=== PATIENT | male | born 1990 ===

== ENCOUNTER 2018-09-10 13:25 | Emergency (ER) | payer OTHER ==
[2018-09-10] MEDS ORDERED: Fluorescein Sodium TOPICAL* 1 MG TEST STRIP OPHTHALMIC ONE (14:01)
[2018-09-10] MEDS ORDERED: Tetracaine 0.5% OPTH.SOL 4 ML* 1 DROP BTL ONE (14:01)
[2018-09-10] MEDS ORDERED: Ibuprofen TAB* 600 MG PO ONE (15:35)
--- NOTE | 2018-09-10 16:18 | ED ---
Throat Pain/Nasal Congestion - HPI Summary HPI Summary: Patient here with right-sided eye pain. Reports he woke with pain this morning. He denies photophobia, foreign body sensation, itching and no known trauma. He is sitting in chair keeping his eye closed and reports he gets "zings" of pain occasionally in front of eye. Feels better when he pulls his lid off of his cornea. No discharge, blurred vision, pain with palpation, headache, pain behind the eye, floaters. Admits he had URI symptoms about 3 days ago which have since cleared. No fevers, chills, neck pain or stiffness, rash. He does not wear contact lenses and no new cosmetics, etc. - History of Current Complaint Chief Complaint: EDEyeProblem Time Seen by Provider: 09/10/18 14:01 Hx Obtained From: Patient - Allergies/Home Medications Allergies/Adverse Reactions: Allergies Allergy/AdvReac Type Severity Reaction Status Date / Time No Known Allergies Allergy Verified 09/10/18 13:33 PMH/Surg Hx/FS Hx/Imm Hx Previously Healthy: Yes Endocrine/Hematology History: Denies: Autoimmune Disease Cardiovascular History: Denies: Hx Aneurysm - Immunization History Immunizations Up to Date: Yes Infectious Disease History: No Infectious Disease History: Denies: Traveled Outside the [place] in Last 30 Days - Social History Occupation: Student Alcohol Use: Occasionally Substance Use Type: Reports: Marijuana Hx Tobacco Use: Yes Smoking Status (MU): Current Every Day Smoker Review of Systems Constitutional: Negative Negative: Fever, Chills, Fatigue Positive: Drainage - watery, Erythema. Negative: Photophobia, Blurred Vision, Diplopia ENT: Negative Cardiovascular: Negative Respiratory: Negative Gastrointestinal: Negative Negative: Vomiting, Nausea Positive: no symptoms reported Musculoskeletal: Negative Skin: Negative Neurological: Negative Psychological: Other - concerned All Other Systems Reviewed And Are Negative: Yes Physical Exam Triage Information Reviewed: Yes Vital Signs On Initial Exam: Initial Vitals Temp Pulse Resp BP Pulse Ox 97.1 F 74 16 131/90 98 09/10/18 13:30 09/10/18 13:30 09/10/18 13:30 09/10/18 13:30 09/10/18 13:30 Vital Signs Reviewed: Yes Appearance: Positive: Well-Appearing, Well-Nourished, Pain Distress - appears comfortable sitting in recliner but holds his Rt eye closed Skin: Positive: Warm, Skin Color Reflects Adequate Perfusion, Dry - no erythema , no edema, no rash Head/Face: Positive: Normal Head/Face Inspection Eyes: Positive: EOMI, CHASITY, Conjunctiva Inflammed - mild, Other: - no pain w/ globe palpation; lens clear - limited funduscopic exam but vessels that were visualized appear healthy - no hyphema, no hemorrhage within globe noted ENT: Positive: Hearing grossly normal, Pharynx normal, TMs normal, Uvula midline. Negative: Nasal congestion, Nasal drainage, Tonsillar swelling, Tonsillar exudate, Trismus, Muffled voice, Hoarse voice, Dental tenderness, Sinus tenderness Neck: Positive: Supple, Nontender, No Lymphadenopathy Respiratory/Lung Sounds: Positive: Clear to Auscultation, Breath Sounds Present Cardiovascular: Positive: Normal Musculoskeletal: Positive: Normal, Strength/ROM Intact Neurological: Positive: Normal, Sensory/Motor Intact, Alert, Oriented to Person Place, Time, CN Intact II-III Psychiatric: Positive: Anxious Procedures - Procedure Summary Procedure Summary: pH 7 feels better w/ tetracaine neg fluoresceine test - neg Siedel's sign no lesions, no abrasions, no lac's Diagnostics - Vital Signs Vital Signs Temp Pulse Resp BP Pulse Ox 09/10/18 13:30 97.1 F 74 16 131/90 98 - Laboratory Lab Statement: Any lab studies that have been ordered have been reviewed, and results considered in the medical decision making process. Re-Evaluation - Re-Evaluation First Eval Change: Improved - pt is no longer closing his eye, no photophobia and no d/c - appears clear and w/o erythema EENT Course/Dx - Diagnoses Provider Diagnoses: Corneal irritation of right eye Discharge - Sign-Out/Discharge Documenting (check all that apply): Patient Departure - Discharge Plan Condition: Stable Disposition: HOME Patient Education Materials: Conjunctivitis (ED) Referrals: Richy Carlson MD [Medical Doctor] - Additional Instructions: The definitive cause of your eye irritation was not identified today however you may have a mild conjunctivitis, irritation of the eye. This does not appear to be bacterial in nature however but you may use saline eye washes for comfort. This may be purchased over the counter. Use 3-5 times a day as needed. For pain and discomfort he may also use ibuprofen with food as needed for pain and swelling. Follow-up with the eye doctor on Wednesday. Call to schedule an appointment Wednesday. If in the meantime you develop worsening of pain, change in vision, lesions on her face or eye, purulent discharge, headache, fever, chills, neck pain or stiffness, return to the emergency department. - Billing Disposition and Condition Condition: STABLE Disposition: Home
[2018-09-10 17:06] VITALS: BP 121/78
== END 2018-09-10 17:05 | disposition home or self-care (01) ==
LOC: ED 13:25
DX: H57.11 Ocular pain, right eye (principal); F17.210 Nicotine dependence, cigarettes, uncomplicated
CPT/HCPCS: 99281; A9270-GY